=== PATIENT | female | born 1950 ===

== ENCOUNTER 2023-04-27 14:02 | Outpatient (REF) | payer MEDICARE, SELFPAY | END 2023-04-27 14:03 | disposition home or self-care (01) | LOC: HO.SCI 14:02 | DX: Z13.89 Encounter for screening for other disorder (principal) ==

== ENCOUNTER 2023-05-26 05:11 | Emergency (ER) | payer MEDICARE, BC, SELFPAY ==
[2023-05-26 05:17] VITALS: BP 121/69; PULSE 82; RESP 16; TEMP 36.7; O2SAT 98; BMI 21.9
--- NOTE | 2023-05-26 06:50 | ED_ITS ---
HPI - Allergic Reaction General Chief complaint: Allergic Reaction Stated complaint: Allergic reaction Time Seen by Provider: 05/26/23 06:28 Source: patient Mode of arrival: ambulatory Limitations: no limitations History of Present Illness HPI narrative: 72 year old female with history of asthma, oscillopsia, Hepatitis C, fibromyalgia presents to ED for evaluation of 1 month history of cough and burning/tingling/itchy sensation throughout her body but especially in face, tongue, buccal mucosa, throat. Believes it is due to an ingredient in her Fixodent cream. At onset of symptoms, she went to PCP and was referred to neurology for neuropathy work up. She also failed course of steroids and antibiotics. The symptoms were intermittent and seeming to resolve until Thursday night, 05/22, when she applied Fixodent denture cream. Began having burning/tingling sensation, dry cough, and felt like her throat was closing. Took Benadryl at home and her dyspnea resolved. Called poison control and was advised to come to ED for serum copper toxicology screen. Denies any swelling, headache, change in vision or hearing, chest pain, shortness of breath, nausea, vomiting, diarrhea, rash. Denies any other changes in medications, foods, topicals. Has appointment with neurology for neuropathy workup next week. MD complaint: allergic reaction Onset (ago): month(s) Exposure: other (Fixodent cream) Known history of allergy to: Levofloxacin Symptoms: itching Treatment prior to arrival: benadryl Previous Allergic Reaction History: none Related Data Allergies Allergy/AdvReac Type Severity Reaction Status Date / Time levofloxacin [From Levaquin] Allergy Stomach Verified 05/26/23 05:20 Upset Review of Systems Review of Systems: Yes all other systems are reviewed and are negative COUNTS INCLUDE 234 BEDS AT THE [facility] Social History Social History Advance Directives: Yes Advance Directives Information Provided: Yes Advance Directives on File: No Physical Exam ED Vital Signs: Vital Signs - 24 hr 05/26/23 05:17 Temperature 98.0 F Pulse Rate 82 Respiratory Rate 16 Blood Pressure 121/69 Pulse Oximetry 98 Oxygen Delivery Method Room Air BMI result Body Mass Index 21.9 Const General: cooperative, healthy appearing, comfortable and no acute distress Nutritional Appearance: average body habitus Orientation/consciousness: patient oriented x3 Limitations: no limitations HENMT Head: Yes normal to inspection Ears: hearing grossly normal bilaterally and external ears normal General nose exam: Normal external nose present Face and sinus: Yes normal facial exam and Yes face symmetric Mouth: Normal oral and palatal mucosa present, lip normal, tongue normal, oropharynx normal and moist mucous membranes Teeth and gingiva: gingiva normal and dentures Throat: Yes posterior oropharynx normal and Yes uvula midline Eyes General: appearance normal, both eyes and all related structures Eyelids: Yes eyelids normal Conjunctivae: conjunctivae normal Sclerae: sclerae normal Corneas: corneas normal Pupils: Equal, round and reactive pupils present and Pupil accommodation reflex normal EOM: EOMs intact bilaterally Direct Ophthalmoscopy: normal light reflex and no photophobia Neck Neck: Yes normal visual inspection Resp Effort & Inspection: normal respiratory effort, able to speak in complete sentences and Actively coughing Quality: dry Auscultation: clear to auscultation bilaterally, no wheezes and lung sounds not diminished Cardio Rate: regular rate Rhythm: regular rhythm Skin General skin exam: no rashes or lesions noted Neuro General: patient oriented x3 Cranial nerves: Yes CN's II-XII intact bilaterally, Yes Facial sensation intact/muscles of mastication intact, Yes Equal, round and reactive pupils present and Yes Midline tongue present Sensory Exam: other (Sensation to light touch greater in RLE than LLE.) Medical Decision Making Medical Decision Making MDM Narrative: 72 year old female with history of asthma, oscillopsia, Hepatitis C, fibromyalgia presents to ED for evaluation of 1 month history of cough and burning/tingling/itchy sensation throughout her body but especially in face, tongue, buccal mucosa, throat. Believes it is due to an ingredient in her Fixodent denture cream. Physical exam revealed no angioedema, rash, urticaria, signs of respiratory distress. Lungs clear to auscultation bilaterally. Patient is speaking in full sentences. Explained to patient that she is safe for discharge from an emergency standpoint. VSS and she presents without urticaria, angioedema, anaphylaxis, any signs of toxicity. Recommend that she discontinues use of Fixodent cream, continues use of Benadryl as needed for symptoms, and follows with PCP for immunology workup. and neurology for neuropathy workup. Differential Diagnosis Differential Diagnoses: The differential diagnosis associated with the presentation includes Allergic reaction, drug toxicity, paresthesias, viral respiratory illness Tests considered The following testing was considered but not selected: lab workup considered but requires specialized testing for copper and zinc which can be done as an outpatient Prescription Management I considered prescription management with: Other (antihistamine) Critical Care Time Critical Care Time Critical Care Time: No Discharge Plan Discharge Clinical Impression: Paresthesias Patient Disposition: Home, Self-Care Instructions: Paresthesia (ED) Additional Instructions: recommend following up with your doctor for further evaluation and treatment continue benadryl as needed for burning/tingling sensation recommend following up with an [employer] - [facility] in [place] - call for an appointment - [phone] If you develop new or worsening symptoms call 911 or come back to the ER for further evaluation. Referrals: Eleazar Milan MD [Primary Care Provider] - Interventions: ED Discharge Assessment Last Done: 05/26/23 07:21 Discharge Date/Time: 05/26/23 07:22
== END 2023-05-26 07:22 | disposition home or self-care (01) ==
PROVIDERS: Emergency Provider Emergency Medicine; PCP Internal Medicine
DX: R20.2 Paresthesia of skin (principal)
CPT/HCPCS: 99282